=== PATIENT | female | born 1975 ===

== ENCOUNTER 2016-03-19 15:25 | Emergency (ER) | payer OTHER ==
[~2016-03-19] VITALS: Ht 167.6 cm; Wt 100.0 kg
[~2016-03-19 15:25] MED LIST: CYCL10TA9 PO; GABA-500 PO; HYDR50TA76 PO; IBUP800T28 PO; OXYC1TAB24 PO; SERT20OR6 PO
[2016-03-19 15:43] VITALS: BP 141/92; PULSE 86; RESP 20; O2SAT 95
== END 2016-03-19 18:25 | disposition left against medical advice (07) ==
LOC: SED 15:25
DX: Z53.21 Procedure and treatment not carried out due to patient leaving prior to being seen by health care provider (principal)

== ENCOUNTER 2016-11-17 10:45 | Emergency (ER) | payer OTHER ==
[~2016-11-17] VITALS: Ht 167.6 cm; Wt 109.1 kg
[2016-11-17 10:51] VITALS: BP 131/87; PULSE 116; RESP 20; O2SAT 98
[2016-11-17 11:08] VITALS: BP 152/82; PULSE 110; RESP 21; O2SAT 97
[2016-11-17 11:11] VITALS: BP 152/82; PULSE 110; RESP 21; O2SAT 97
--- NOTE | 2016-11-17 11:14 | ED.REPORT ---
HPI-Dyspnea / Wheezing Date of Service Nov 17, 2016 ED Provider: Georges Tovar MD Patient is a 40 year old female who presents to the ED complaining of shortness of breath gradually coming on for the past 4 days that started as congestion. She also complains of chest pain that is exacerbated by deep inhalation. Associated symptoms include headache, subjective fever, nausea, leg swelling, weakness and lightheadedness. Patient also reports diarrhea but states that this is not a new symptom and she has an appointment with her primary care physician regarding this. She denies vomiting or abdominal pain. Nursing Notes Stated Complaint: SOB Chief Complaint: General Complaint Nursing Notes Reviewed: Yes Allergies: Coded Allergies: No Known Allergies (Verified Allergy, Unknown, 09/08/15) Scheduled Azithromycin (Zithromax) 250 Mg Tablet 250 MG PO DAILY Gabapentin (Gabapentin) 100 Mg Capsule 50 MG PO DAILY Sertraline HCl (Sertraline) 20 Mg/1 Ml Oral.conc 50 MG PO DAILY Scheduled PRN Cyclobenzaprine (Cyclobenzaprine) 10 Mg Tablet 10 MG PO TID PRN PRN Spasm Hydroxyzine HCl (HydrOXYzine Hcl) 50 Mg Tablet 50 MG PO QID PRN PRN For Anxiety or Agitation Ibuprofen (Ibuprofen) 800 Mg Tablet 800 MG PO TID PRN PRN For Pain oxyCODONE-Acetaminophen 5-325 mg (oxyCODONE-Acetaminophen 5-325 mg) 1 Each Tablet 1-2 TAB PO Q6H PRN PRN For Pain General Time Seen by MD: 11:12 Chief Complaint Shortness of breath Hx Obtained From: Patient Arrived By: Walk-in Sudden in Onset?: No Onset Occurred: 4 days ago Symptom Duration: Since onset Similar Sx Previous: No Past Medical History Past Medical History Anxiety attacks Bipolar Morbidly obese Episodic lower back pain fibromyalgia Past Surgical History Reports: Tonsillectomy Reports: Tubal ligation Family History non-contributory Reports: Diabetes mellitus Smoking History Never Smoker Social History Alcohol Use: "Social" Drug Use: Denies drug use Ambulatory Status Independent Review of Systems Constitutional: Reports: Fever, Denies: Chills Ears / Nose / Throat: Reports: Nasal congestion Respiratory: Reports: Shortness of breath, Denies: Non-productive cough Cardiovascular: Reports: Chest pain Musculoskeletal: Reports: Extremity swelling Skin: Denies Itching, Denies Rash Complete sys rev & neg: except as marked. GI: Reports: Diarrhea, Nausea, Denies: Abdominal pain, Vomiting Neurologic: Reports: Headache, Lightheaded Physical Exam Initial Vital Signs Vital Signs (First) Date Time Temp Pulse Resp B/P Pulse Ox O2 Delivery O2 Flow Rate FiO2 11/17/16 10:51 37.3 116 20 131/87 98 Room Air Initial VS: Reviewed General/Constitutional: Awake, Alert, No acute distress Neck: Atraumatic, Supple Respiratory / Chest: Atraumatic, Breath sounds NL, Breath sounds = bilat, No respiratory distress tender to palpation of the chest wall Cardiovascular: Regular rhythm, Heart sounds NL Heart Rate / Rhythm: Positive: Tachycardia Abdomen: Atraumatic, Soft Lower Extremity / Pelvis / MS: Atraumatic, Inspection NL, Full range of motion , No edema Skin: Atraumatic, Color NL, No rash, Warm, Dry Neurologic: Oriented X3, Speech NL Head / Eyes: Atraumatic, Normocephalic, PERRL, EOMI Interpretation & Diagnostics Lab Results Interpretation Result Diagram: 11/17/16 1100 11/17/16 1100 Test 11/17/16 11:00 White Blood Count 14.1th/mm3 (3.8-10.1) Red Blood Count 4.95mil/mm3 (3.90-5.20) Hemoglobin 13.1g/dL (12.0-15.6) Hematocrit 40.0% (35.0-46.0) Mean Corpuscular Volume 80.8fL (81-100) Mean Corpuscular Hemoglobin 26.5pg (27.0-35.0) Mean Corpuscular Hemoglobin Concent 32.8% (32.0-37.0) Red Cell Distribution Width 14.2% (12.3-15.4) Platelet Count 245bil/L (150-400) Neutrophils (%) (Auto) 84.0% (40-74) Lymphocytes (%) (Auto) 8.7% (14-46) Monocytes (%) (Auto) 5.7% (4-12) Eosinophils (%) (Auto) 1.1% (0-5) Basophils (%) (Auto) 0.4% (0-3) D-Dimer < 0.50mg/L FEU (<0.50) Sodium Level 134mEq/L (134-144) Potassium Level 4.1mEq/L (3.5-5.2) Chloride Level 96mEq/L (97-108) Carbon Dioxide Level 23mmol/L (18-29) Blood Urea Nitrogen 12mg/dL (6-20) Creatinine 0.56mg/dL (0.57-1.00) Estimat Glomerular Filtration Rate 173mL/min (>59) Glucose Level 104mg/dL (60-99) Calcium Level 9.1mg/dL (8.5-10.1) Magnesium Level 1.7mg/dL (1.6-2.6) Total Bilirubin 0.7mg/dL (0.0-1.2) Aspartate Amino Transf (AST/SGOT) 14U/L (0-50) Alanine Aminotransferase (ALT/SGPT) 13U/L (0-32) Alkaline Phosphatase 100U/L (25-150) Troponin T 0.010ug/L (0.0-0.011) Pro-B-Type Natriuretic Peptide 135.4pg/mL (0-130) Total Protein 8.7g/dL (6.4-8.4) Albumin 4.3g/dL (3.4-5.0) Hold Zamora Top Tube Received (Received) ECG Interpretation ECG Interpretation: sinus tachycardia, rate 110 probable left atrial enlargement Time: 11:06 Interpreted by: ED physician X-Ray Chest Interpretation Chest Xray Interpretation: IMPRESSION: Minimal appearance of right basilar patchy opacity suggestive of atelectasis/developing pneumonia. Dictated by: Betsey Zhang M.D. on 11/17/2016 at 11:17 Approved by: Betsey Zhang M.D. on 11/17/2016 at 11:17 View: Portable, 1 view Interpretation / Wet Read by: Interpret - Radiologist Re-Eval/Medical Decision Re-Evaluation/Progress : Time of Eval: 12:20 Re-Evaluation/Progress Note: Discussed results and plan for discharge. Patient understands and agrees to plan. All questions were addressed. Counseled Regarding: Diagnosis, Lab results, Need for follow-up, When/why to return to ED Discharge & Departure Impression: Primary Impression: Pneumonia Pneumonia type: due to unspecified organism Laterality: right Lung location : lower lobe of lung Qualified Code: J18.1 - Lobar pneumonia, unspecified organism Disposition: Home Discharge Condition All VS Reviewed: Yes Condition: Stable Patient Instructions: Community Acquired Pneumonia (ED) Additional Instructions: Your X-ray showed that you are developing pneumonia. Take the antibiotic Azithromycin as prescribed. Be sure to drink plenty of fluids and rest. You can take ibuprofen as directed for pain. Follow up with your primary care physician next week. Return to the emergency department if you develop any new or concerning symptoms. Referrals: Ingris Slaughter (PCP) [place] Attestation Portions of this note were transcribed by Inge Baldwin. I, Dr. Tovar personally performed the history, physical exam and medical decision-making; I reviewed and confirmed the accuracy of the information in the transcribed note. Signed by: Gordy Harkins, 11/17/16 copies to: Ingris Slaughter Kirk H MD Nov 17, 2016 11:14 Sonal Baldwin Nov 17, 2016 11:21
--- NOTE | 2016-11-17 11:19 | DRSVH ---
PROCEDURE: X-RAY CHEST ONE VIEW, PORTABLE ([id number]) INDICATIONS: SHORTNESS OF BREATH TECHNIQUE: One view of the chest was acquired. COMPARISON: [facility], CR, XR CHEST 1VW (PORTABLE), 05/28/2015, 17:43. FINDINGS: Surgical changes and devices: None. Lungs and pleura: No pleural effusions or pneumothorax. Minimal appearance of right basilar patchy o pacity. Mediastinum: Mediastinal contours appear normal. Heart size is normal. Bones and chest wall: No suspicious bony lesions. Overlying soft tissues appear unremarkable. IMPRESSION: Minimal appearance of right basilar patchy opacity suggestive of atelectasis/developing p neumonia. Dictated by: Betsey Zhang M.D. on 11/17/2016 at 11:17 Approved by: Betsey Zhang M.D. on 11/17/2016 at 11:17
[2016-11-17] MEDS ORDERED: 0.9% Sodium Chloride 1,000 ML IV ONE (11:25)
[2016-11-17 11:37] LABS: BASOPHILS % (AUTO) 0.4 % (0-3); EOSINOPHILS % (AUTO) 1.1 % (0-5); MONOCYTES % (AUTO) 5.7 % (4-12); Mean Corpuscular Hemoglobin 26.5 pg (27.0-35.0); Mean Corpuscular Volume 80.8 fL (81-100); Platelet Count 245 bil/L (150-400)
[2016-11-17 11:54] LABS: TROPONIN T 0.01 ug/L (0.0-0.011)
[2016-11-17 12:05] LABS: Magnesium 1.7 mg/dL (1.6-2.6)
[2016-11-17] MEDS ORDERED: ZIT250 PO (12:37)
[2016-11-17 12:53] VITALS: BP 132/66; PULSE 71; RESP 18; O2SAT 97
[2016-11-17 12:59] VITALS: BP 132/66; PULSE 71; RESP 18; O2SAT 97
== END 2016-11-17 12:59 | disposition home or self-care (01) ==
LOC: SED 10:45
DX: J18.1 Lobar pneumonia, unspecified organism (principal); R50.9 Fever, unspecified; R11.0 Nausea; M79.89 Other specified soft tissue disorders; R19.7 Diarrhea, unspecified; R42 Dizziness and giddiness; R53.1 Weakness; R51 Headache; F41.9 Anxiety disorder, unspecified; F31.9 Bipolar disorder, unspecified; M79.7 Fibromyalgia; Z90.89 Acquired absence of other organs
CPT/HCPCS: 36415; 71010; 80053; 83735; 83880; 84484; 85025; 85378; 93005; 96361; 96374; 99285; J1885; J7030